=== PATIENT | female | born 1940 | race Caucasian/White ===

== ENCOUNTER → 2017-05-15 | Outpatient (CLI) | payer MEDICARE, OTHER ==
[~2017-05-15] MED LIST: ASPI325T6 PO; CELEBREX 200MG200 MG PO; COREG 25MG25 MG/TAB PO; COREG12.5 MG PO; DULCOLAX S10 MG/SUPP RC; EFFEXOR100 MG PO; FERROUS GL325 MG/TAB PO; FIBER TABLETS1 TAB PO; FLEET ENEM1 BOT/133 RC; LANTUS100 U/ML SC; MORP4 IV; NORCO 325 MG-7.1 TAB PO; NOVOLOG 100U100 U/M1 SC; OXY IR5 MG PO; PEPCID 20MG TAB20 MG PO; PERCOCET 325 MG1 TA2 PO; PLAVIX 75MG TAB75 MG; PRINIVIL2.5 MG PO; TYLENOL EXTRA500 M1 PO; VICTOZA6 MG/ML SC; ZOCOR 40MG40 MG PO; [UNRECOGNIZED DRUG - OTHER] PO
== END ==
LOC: MC.RAD 12:59
DX: N64.4 Mastodynia (principal); Z98.890 Other specified postprocedural states; Z92.3 Personal history of irradiation; Z85.3 Personal history of malignant neoplasm of breast